=== PATIENT | female | born 2005 | race African-American/Black ===

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

== ENCOUNTER 2024-01-18 13:56 | Emergency (ER) | payer OTHER ==
[2024-01-18] MEDS ORDERED: Ibuprofen 200 MG TAB ONE (14:47)
[2024-01-18] MEDS ORDERED: Acetaminophen 500 MG TAB ONE (14:47)
[2024-01-18 16:32] LABS: Influenza A by NAA Not Detected (NotDetected); Influenza B by NAA Not Detected (NotDetected); SARS-CoV-2 NAA Rapid Test Not Detected (NotDetected)
== END 2024-01-18 16:27 | disposition home or self-care (01) ==
LOC: CSHERS 13:56
DX: B34.9 Viral infection, unspecified (principal)
CPT/HCPCS: 99284

== ENCOUNTER 2024-03-06 13:08 | Emergency (ER) | payer OTHER, SELFPAY ==
[2024-03-06] MEDS ORDERED: Ibuprofen 200 MG TAB ONE (13:48)
[2024-03-06] MEDS ORDERED: Acetaminophen 500 MG TAB ONE (13:48)
[2024-03-06 14:46] LABS: Bilirubin Neg (Negative); Blood, Urine Negative (Negative); Clarity Clear (Clear); Glucose, Urine (Dipstick) Normal (Negative); Ketone, Urine 5 mg/dL (Negative); Leukocyte Negative (Negative); Nitrite Negative (Negative); Protein, Urine (Dipstick) 15 mg/dl (Neg-Trace); Urobilinogen Normal mg/dL (Less than 2)
[2024-03-06 14:47] LABS: Pregnancy Test - Urine (BHCG) Negative (Negative); Pregu Control Background? CLEAR/WHITE (CLR/WHITE); Pregu Control Bar Appear? YES (CONTROL BAR)
[2024-03-06 15:05] LABS: Bacteria/HPF None Seen HPF (None Seen); CAUTI Indications for Culture Pelvic or flank pain; RBC/HPF 0-3 HPF (0-3); Urine Culture Reflex No No; WBC/HPF 0-3 HPF (0-3)
== END 2024-03-06 16:03 | disposition home or self-care (01) ==
LOC: CSHERS 13:08
DX: B34.9 Viral infection, unspecified (principal); Z55.0 Illiteracy and low-level literacy
CPT/HCPCS: 81001; 81025; 93005

== ENCOUNTER 2024-04-10 19:32 | Emergency (ER) | payer SELFPAY | END 2024-04-10 20:18 | disposition home or self-care (01) | LOC: CSHERS 19:32 | DX: J06.9 Acute upper respiratory infection, unspecified (principal); R05.9 Cough, unspecified; Z20.822 Contact with and (suspected) exposure to COVID-19 | CPT/HCPCS: 87428; 99283 ==

== ENCOUNTER 2024-04-27 16:53 | Emergency (ER) | payer SELFPAY | END 2024-04-27 19:34 | disposition home or self-care (01) | LOC: CSHERS 16:53 | DX: S09.90XA Unspecified injury of head, initial encounter (principal); M79.10 Myalgia, unspecified site; V89.2XXA Person injured in unspecified motor-vehicle accident, traffic, initial encounter | CPT/HCPCS: 99283 ==

== ENCOUNTER 2024-06-02 11:03 | Emergency (ER) | payer SELFPAY ==
[2024-06-02 12:13] LABS: Bilirubin Neg (Negative); Blood, Urine Negative (Negative); Clarity Cloudy (Clear); Glucose, Urine (Dipstick) Normal (Negative); Ketone, Urine Negative (Negative); Leukocyte 25 (Negative); Nitrite Negative (Negative); Protein, Urine (Dipstick) 15 mg/dl (Neg-Trace); pH, Urine 6.5 (5.0-9.0)
[2024-06-02 12:18] LABS: Pregnancy Test - Urine (BHCG) POSITIVE (Negative); Pregu Control Background? CLEAR/WHITE (CLR/WHITE); Pregu Control Bar Appear? YES (CONTROL BAR)
[2024-06-02 12:27] LABS: Bacteria/HPF 2+ HPF (None Seen); CAUTI Indications for Culture Pelvic or flank pain; Mucous/LPF 1+ LPF (<2+); RBC/HPF None Seen HPF (0-3); WBC/HPF 0-3 HPF (0-3)
[2024-06-02 12:28] LABS: Urine Culture Reflex No No
[2024-06-02 13:10] LABS: #Basophils 0.03 10x3/uL (0.0-0.2); #Eosinophils 0.06 10x3/uL (0.0-0.5); #Monocytes 0.33 10x3/uL (0.0-1.1); #Neutrophils 2.94 10x3/uL (1.5-8.4); %Basophils 0.7 % (0.0-2.0); %Eosinophils 1.3 % (0.0-6.0); %Lymphocytes 26.4 % (18.0-47.0); %Monocytes 7.2 % (0.0-10.0); %Neutrophils 64.2 % (40.0-75.0); Hematocrit 38.9 % (34.9-44.5); Hemoglobin 12.9 g/dL (12.0-15.5); Mean Corpuscular HGB CONC 33.2 g/dL (32.0-36.0); Mean Corpuscular Hemoglobin 27.9 pg (27.0-33.0); Mean Platelet Volume 9.5 fL (7.4-10.4); Platelet Count 262 10x3/uL (150-450); RBC Distribution Width 12.9 % (11.5-14.5); Red Blood Cell (RBC) Count 4.63 10x6/uL (3.90-5.03); White Blood Cell (WBC) Count 4.6 10x3/uL (3.5-10.5)
[2024-06-02 13:21] LABS: ALT (SGPT) 11 U/L (8-55); AST (SGOT) 17 U/L (5-34); Albumin 3.6 g/dL (3.5-5.0); Alkaline Phosphatase 73 U/L (40-100); Anion Gap 11 mmol/L (10-20); BUN (Urea Nitrogen) 6 mg/dL (7.0-18.7); Bilirubin, Total 0.5 mg/dL (0.2-1.2); Calc. Creatinine Clearance 0 mL/min (70-130); Calcium 9.2 mg/dL (7.8-10.44); Carbon Dioxide 23 mmol/L (22-29); Chloride 106 mmol/L (98-107); Estimated GFR 108; Globulin 3.8 g/dL (2.4-3.5); Glucose 79 mg/dL (70-105); Protein, Total 7.4 g/dL (6.0-8.3); Sodium 136 mmol/L (136-145)
== END 2024-06-02 15:23 | disposition home or self-care (01) ==
LOC: CSHERS 11:03
DX: R10.2 Pelvic and perineal pain (principal); Z33.1 Pregnant state, incidental
CPT/HCPCS: 36415; 76856; 80053; 81001; 81025; 84702; 85025; 86900; 86901; 87077; 87086

== ENCOUNTER 2024-12-26 16:24 | Day surgery (SDC) | payer OTHER ==
[2024-12-26 16:53] VITALS: BMI 33.7
[2024-12-26 17:48] LABS: Fetal Membranes Rupture No Membranes Rupture (No Rupture)
== END 2024-12-26 18:17 | disposition home or self-care (01) ==
LOC: CSHLD/OP 16:24
PROVIDERS: ATTEND Family Medicine
DX: O23.593 Infection of other part of genital tract in pregnancy, third trimester (principal); N89.8 Other specified noninflammatory disorders of vagina; Z03.71 Encounter for suspected problem with amniotic cavity and membrane ruled out; Z3A.35 35 weeks gestation of pregnancy; Z79.899 Other long term (current) drug therapy
CPT/HCPCS: 84112

== ENCOUNTER 2025-04-13 01:50 | Emergency (ER) | payer OTHER ==
[2025-04-13 21:23] LABS: Chlamydia by PCR, Vaginal Swab Not Detected (NotDetected); GC by PCR, Vaginal Swab Not Detected (NotDetected)
[2025-04-16 12:02] LABS: Glucose, Urine (Dipstick) Normal (Negative); Leukocyte 500 (Negative); Protein, Urine (Dipstick) 100 mg/dl (Neg-Trace); Specific Gravity, Urine 1.025 (1.005-1.030)
[2025-04-16 12:03] LABS: RBC/HPF 21-50 HPF (0-3)
[2025-04-16 12:04] LABS: Bacteria/HPF Rare-Few HPF (None Seen)
[2025-04-16 12:11] LABS: ALT (SGPT) 16 U/L (Less than 34); AST (SGOT) 26 U/L (11-34); Albumin 3.5 g/dL (3.1-4.5); Alkaline Phosphatase 87 U/L (40-110); Anion Gap 11 mmol/L (10-20); BUN (Urea Nitrogen) 13 mg/dL (7.0-18.7); Bilirubin, Total 0.3 mg/dL (0.3-1.2); Calc. Creatinine Clearance 0 mL/min (70-130); Calcium 8.7 mg/dL (7.8-10.44); Carbon Dioxide 26 mmol/L (22-29); Chloride 108 mmol/L (98-107); Globulin 3.2 g/dL (2.4-3.5); Glucose 107 mg/dL (70-105); Potassium 4.3 mmol/L (3.5-5.1); Sodium 141 mmol/L (136-145)
[2025-04-16 12:57] LABS: #Basophils 0.03 10x3/uL (0.0-0.2); #Eosinophils 0.12 10x3/uL (0.0-0.5); #Monocytes 0.39 10x3/uL (0.0-1.1); #Neutrophils 3.23 10x3/uL (1.5-8.4); %Basophils 0.6 % (0.0-2.0); %Eosinophils 2.3 % (0.0-6.0); %Lymphocytes 28.0 % (18.0-47.0); %Monocytes 7.4 % (0.0-10.0); %Neutrophils 61.5 % (40.0-75.0); Hematocrit 34.6 % (34.9-44.5); Hemoglobin 11.0 g/dL (12.0-15.5); Mean Corpuscular Hemoglobin 27.2 pg (27.0-33.0); Mean Corpuscular Volume 85.4 fL (81.6-98.3); Platelet Count 221 10x3/uL (150-450); Red Blood Cell (RBC) Count 4.05 10x6/uL (3.90-5.03); White Blood Cell (WBC) Count 5.25 10x3/uL (3.5-10.5)
== END 2025-04-13 04:20 | disposition home or self-care (01) ==
LOC: EDBD 01:50 → CSHERS 01:50
DX: N92.0 Excessive and frequent menstruation with regular cycle (principal); N76.0 Acute vaginitis; B96.89 Other specified bacterial agents as the cause of diseases classified elsewhere; N39.0 Urinary tract infection, site not specified
CPT/HCPCS: 80053; 81001; 84702; 85025; 87480; 87491; 87510; 87591; 87660; 99284